=== PATIENT | male | born 1980 | race Caucasian/White ===

== ENCOUNTER 2019-10-05 10:57 | Inpatient (IN) | payer MEDICAID ==
[~2019-10-05] VITALS: Ht 185.4 cm; Wt 90.7 kg
[2019-10-05 11:30] VITALS: BP 135/76
--- NOTE | 2019-10-05 11:30 | NUR ---
DIRECT ADMIT FROM [facility] PT DIRECT ADMIT FROM [facility] ARRIVED ON THE FLOOR AT 1130AM. CAME VIA GURNEY BROUGHT IN BY 2 FURNACE ATTENDANT. PT IS VERY SLEEPY BUT HE IS AROUSABLE. AOX3. HE ADMITS TO USING METH OCCASIONALLY, HE STATES THAT HIS LAST USE WAS 6 DAYS AGO. PT HOOKED UP ON CARDIAC TELE MONITOR SHOWING SINUS RHYTHM WITH HR OF 80S. BODY CHECK DONE. CELLULITIS NOTED ON L FOOT WITH REDNESS AND TENDERNESS NOTED WITH EDEMA. PICTURES TAKEN AND PLACED IN CHART. IV ACCESS NOTED ON L AC G20. PT CONTINENT OF BOWEL AND BLADDER. ABLE TO AMBULATE BUT PT IS LIMPING D/T LEFT FOOT CELLULITIS. ORIENTED PT TO ROOM, UNIT. SAFETY PRECAUTIONS IN PLACE. BED LOCKED AND IN LOW POSITION. BED ALARM ON. SIDE RAILS UP. WILL CONT TO MONITOR.
--- NOTE | 2019-10-05 12:00 | NUR ---
MD NOTIFICATION DR. RAMOS NOTIFIED OF PTS ADMISSION. PER MD HE WILL PUT ADMITTING ORDERS.
--- NOTE | 2019-10-05 12:15 | NUR ---
[facility] SWAB OBTAINED MRSA SWAB OBTAINED FOR MRSA SCREENING. SPECIMEN COLLECTED. NOTIFIED LAB.
[2019-10-05] MEDS ORDERED: HYDROCODONE/APAP 5/325MG 1 EACH TABLET PO PRN (12:30)
[2019-10-05] MEDS ORDERED: MAGNESIUM HYDROXIDE 30 ML UDC PO PRN (12:30)
[2019-10-05] MEDS ORDERED: APIXABAN 5 MG TABLET PO SCH (12:30)
[2019-10-05] MEDS ORDERED: Z GUARD REMEDY 2 OZ OINT TP PRN (12:30)
[2019-10-05] MEDS ORDERED: ONDANSETRON HCL/PF 4 MG/2 ML VIAL IVP PRN (12:30)
[2019-10-05] MEDS ORDERED: ZOLPIDEM TARTRATE 5 MG TABLET PO PRN (12:30)
[2019-10-05] MEDS ORDERED: MAG HYDROX/AL HYDROX/SIMETH 30 ML UDC PO PRN (12:30)
[2019-10-05] MEDS ORDERED: ACETAMINOPHEN 325 MG TABLET PO PRN (12:30)
[2019-10-05] MEDS ORDERED: MORPHINE SULFATE INJ 2 MG/ML DISP.SYRIN IV PRN (12:30)
[2019-10-05] MEDS: IV NS 0.9% 1,000 ML IV PRN (12:57)
--- NOTE | 2019-10-05 14:00 | NUR ---
F/U WITH MD FOLLOWED UP WITH MD FOR ATB SINCE PT HAS DX OF CELLULITIS. PER DR. RAMOS, HE WILL ORDER ATB FOR PT.
[2019-10-05] MEDS ORDERED: FEE PK DOSING 1 MIN EA MC ONE (14:37)
[2019-10-05] MEDS: CEFTRIAXONE 1 G in IV D5W 50 ML IV SCH (15:48)
--- NOTE | 2019-10-05 16:00 | NUR ---
NO HOME MEDS PER PT HE DOESNT TAKE ANY MEDS AT HOME.
[2019-10-05] MEDS: RIVAROXABAN 15 MG TABLET PO SCH (16:25)
[2019-10-05 16:33] VITALS: BP 123/74
[2019-10-05] MEDS: VANCOMYCIN 1.25 GM in IV D5W 250 ML IV SCH (17:41)
--- NOTE | 2019-10-05 18:24 | NUR ---
DIRECTOR OF DIETARY CLOSING NOTES PT IN BED. ASLEEP. BUT AROUSABLE. HE IS AOX3. NO CARDIAC OR RESPIRATORY DISTRESS NOTED. SATURATING WELL ON ROOM AIR. CONTINENT OF B/B. IV ACCESS NOTED ON L AC G20. NS RUNNING AT 100ML/HR. IV ATB ROCEPHIN AND VANCOMYCIN STARTED TODAY. NO COMPLAINS OF PAIN OR DISCOMFORT AT THIS TIME. PT ATE 100% OF HIS DINNER. SAFETY PRECAUTIONS IN PLACE. BED LOCKED AND IN LOW POSITION. SIDE RAILS UP X2. BED ALARM ON. WILL ENDORSE TO NEXT SHIFT.
--- NOTE | 2019-10-05 19:35 | NUR ---
FIELD TRAINER OPENING NOTES PATIENT AWAKE IN BED. A/OX3, ABLE TO VERBALIZE NEEDS. ON RA. NO S/S OF ACUTE RESPIRATORY DISTRESS OR C/O PAIN AT THIS TIME. TELE MONITOR READING NSR, HEART RATE 80. IV PRESENT ON LEFT AC, SIZE 20, INTACT & PATENT WITH NS RUNNING AT 100 ML/HR. SAFETY MEASURES IN PLACE AND PATIENT'S NEEDS MET. BED LOCKED, SIDE RAILS X2, CALL LIGHT WITHIN REACH. WILL CONTINUE TO MONITOR.
[2019-10-05 20:00] VITALS: BP 109/59
[2019-10-06] VITALS: BP 119/51
[2019-10-06 01:14] VITALS: BP 119/51
[2019-10-06] MEDS: VANCOMYCIN 1.25 GM in IV D5W 250 ML IV SCH ×3 (01:29→17:50)
--- NOTE | 2019-10-06 07:30 | NUR ---
Tele/RN Opening Note Received patient AO x 2-3, sleeping, does no appears pain or any discomfort. Respiratory even and unlabored in room air. Skin is warm to touch, kept clean/dry, intact IV site at AC 20g. Kept low position of the bed with locked wheel and elevated head of bed foe secure airway. Call light within reach, will continue to monitor.
[2019-10-06 07:33] LABS: BASOPHILS % (AUTO) 0.5 % (0.0-2.0); EOSINOPHILS % (AUTO) 2.2 % (0.0-6.0); HEMATOCRIT 38 % (39-51); HEMOGLOBIN 12.6 g/dL (13.5-17.5); LYMPHOCYTES # (AUTO) 1.7 /CMM (0.8-4.8); LYMPHOCYTES % (AUTO) 20.2 % (20.0-44.0); MEAN CORPUSCULAR HGB CONC 33 g/dl (31.0-36.0); MEAN CORPUSCULAR VOLUME 84 fL (80-96); MONOCYTES # (AUTO) 0.9 /CMM (0.1-1.30); NEUTROPHILS # (AUTO) 5.7 /CMM (1.8-8.9); NEUTROPHILS % (AUTO) 67.1 % (43.0-81.0); PLATELET COUNT (AUTO) 348 /CMM (150-450); RED BLOOD CELL COUNT(AUTO) 4.54 MIL/uL (4.5-6.0); WHITE BLOOD COUNT (AUTO) 8.5 K/uL (4.3-11.0)
--- NOTE | 2019-10-06 07:41 | NUR ---
BUNKER WORKER CLOSING NOTES PATIENT SLEEPING IN BED, EASY TO AWAKEN. A/OX3. ON RA. NO S/S OF ACUTE RESPIRATORY DISTRESS OR C/O PAIN AT THIS TIME. TELE MONITOR READING NSR, HEART RATE 95. IV PRESENT ON LEFT AC, SIZE 20, INTACT & PATENT WITH NS RUNNING AT 100 ML/HR. SAFETY MEASURES IN PLACE AND PATIENT'S NEEDS MET. BED LOCKED, SIDE RAILS X2, CALL LIGHT WITHIN REACH. WILL ENDORSE TO DAY SHIFT NURSE PLAN OF CARE.
[2019-10-06 07:49] LABS: ALBUMIN 2.8 g/dL (3.4-5.0); BILIRUBIN,TOTAL 0.4 mg/dL (0.2-1.0); CALCIUM, SERUM 8.2 mg/dL (8.5-10.1); CREATININE 0.8 mg/dL (0.6-1.3); MAGNESIUM 2.1 mg/dL (1.8-2.4); PHOSPHORUS 2.4 mg/dL (2.5-4.9); POTASSIUM 3.5 mmol/L (3.5-5.1); TOTAL PROTEIN, SERUM 6.6 g/dL (6.4-8.2)
[2019-10-06 08:00] VITALS: BP 121/70
[2019-10-06] MEDS: RIVAROXABAN 15 MG TABLET PO SCH ×2 (08:54→17:49)
[2019-10-06] MEDS: IV NS 0.9% 1,000 ML IV PRN (09:00)
--- NOTE | 2019-10-06 09:04 | NUR ---
WOUND CARE CONSULT: PT PRESENTS WITH SWELLING AND REDNESS TO LEFT LOWER LEG AND FOOT, PRESENT ON ADMISSION. DISCUSSED LEG ELEVATION WITH NURSING STAFF AND PT. WILL SEE PRN. CURRENT INEZ SCORE IS 22. Addendum: 10/06/19 at 0905 by SERGIO ANDERSON WNDNU Amended: Links added.
[2019-10-06] MEDS ORDERED: K PHOS NEUTRAL 250 MG TABLET PO ONE ×2 (10:30→11:00)
--- NOTE | 2019-10-06 10:39 | NUR ---
Patient has order phos-nak po 500mg 2tabs, but Omnicell available only powder 1.5gm, spoke with pharmacy, who will fix computer system.
[2019-10-06 12:00] VITALS: BP 126/77
[2019-10-06] MEDS: CEFTRIAXONE 1 G in IV D5W 50 ML IV SCH (15:26)
[2019-10-06 16:00] VITALS: BP 122/63
--- NOTE | 2019-10-06 18:30 | NUR ---
MS/RN Closing note Patient in bed comfortably, does no c/o pain or any discomfort. Respiratory even and unlabored with room air. Skin is warm touch, kept clean/dry, intact IV site, no s/s of adverse reaction observed from ATB IV therapy. Keep bed position with locked wheel and elevated head of bed for secure airway. Call light within reach, will endorse night supervisor.
[2019-10-06 20:00] VITALS: BP 117/69
--- NOTE | 2019-10-06 20:00 | NUR ---
MS/RN OPENING NOTES RECEIVED PATIENT IN BED, ABLE TO VERBALIZE NEEDS, REPORTED SOME PAIN OF 2/10 BUT IN LOWER FEET. CALM AND COOPERATIVE, ABLE TO TOLERATE. SKIN WARM TO TOUCH. ON IV HYDRATION. IV SITE PATENT. ON ROOM AIR BREATHING EVEN AND UNLABORED. RECEIVED ENDORSEMENT FROM AM RN FOR CHANDLER. USES URINAL AND OFF LOAD EXTREMITIES. BED LOCKED, CALL LIGHTS WITHIN REACH,
[2019-10-07] MEDS: VANCOMYCIN 1.25 GM in IV D5W 250 ML IV SCH ×3 (01:04→17:10)
[2019-10-07] MEDS: IV NS 0.9% 1,000 ML IV PRN (06:27)
--- NOTE | 2019-10-07 06:36 | NUR ---
313-1 MS/RN NOTES PATIENT ABLE TO SLEEP DURING THE NIGHT, PAIN TOLERATED, LEFT LEG WITH REDNESS/CELLULITIS AND OFF LOADED,ATTENDED TO ALL NEEDS,BREATHING EVEN AND UNLABORED, MONITORED FOR CHANGES, KEPT COMFORTABLE. IV SITE ON LEFT WRIST PATENT. IV ANTIBIOTIC ADMINISTERED. TOLERATED WELL. WILL ENDORSE TO AM RN FOR CHANDLER.
[2019-10-07 06:50] LABS: BASOPHILS # (AUTO) 0.1 /CMM (0.0-0.2); BASOPHILS % (AUTO) 0.8 % (0.0-2.0); EOSINOPHILS % (AUTO) 3.8 % (0.0-6.0); HEMATOCRIT 37 % (39-51); HEMOGLOBIN 12.5 g/dL (13.5-17.5); LYMPHOCYTES # (AUTO) 1.6 /CMM (0.8-4.8); LYMPHOCYTES % (AUTO) 24.8 % (20.0-44.0); MEAN CORPUSCULAR HGB CONC 34 g/dl (31.0-36.0); MEAN CORPUSCULAR VOLUME 84 fL (80-96); MONOCYTES # (AUTO) 0.6 /CMM (0.1-1.30); MONOCYTES % (AUTO) 9.9 % (2.0-12.0); NEUTROPHILS % (AUTO) 60.7 % (43.0-81.0); PLATELET COUNT (AUTO) 385 /CMM (150-450); RED BLOOD CELL COUNT(AUTO) 4.42 MIL/uL (4.5-6.0); WHITE BLOOD COUNT (AUTO) 6.5 K/uL (4.3-11.0)
[2019-10-07 07:01] LABS: CREATININE 0.8 mg/dL (0.6-1.3); PHOSPHORUS 3.4 mg/dL (2.5-4.9); POTASSIUM 3.5 mmol/L (3.5-5.1)
--- NOTE | 2019-10-07 07:35 | NUR ---
MS/RN - Assessment Patient is A/O X 4, afebrile, stable on room air, no complaints overnight, denies pain, IVF NS at 75 ml/hr infusing well on the left wrist with no signs of infiltration. Left leg with redness and swelling, continue to elevate. On Vancomycin IV for Cellulitis. Labs reviewed, no critical results seen. Fall precautions maintained. Will continue with current medical management.
[2019-10-07] MEDS: RIVAROXABAN 15 MG TABLET PO SCH ×2 (08:04→16:51)
[2019-10-07 16:00] VITALS: BP 123/71
--- NOTE | 2019-10-07 18:53 | NUR ---
MS/RN - End of shift summary No significant change in condition noted, remain afebrile, denies pain, not in any form of distress. Plan of care discussed with patient and in agreement. Will endorse to night RN accordingly.
--- NOTE | 2019-10-07 19:20 | NUR ---
MS RN OPENING NOTES RECEIVED PATIENT FROM MORNING SHIFT, ALERT AND ORIENTED X 3. VERBALLY RESPONSIVE AND ABLE TO FOLLOW DIRECTIONS. BREATHING REGULAR AND UNLABORED ON ROOM AIR. LEFT WRIST G20 IV LINE INTACT AND PATENT INFUSING WELL WITH NO BLEEDING OR S/S OF INFILTRATION NOTED. DENIES SUICIDAL IDEATION. NO COMPLAINTS OF PAIN/DISCOMFORT REPORTED AT THIS TIME. BED LOW AND LOCKED ON SEMI FOWLERS POSITION. CALL LIGHT IN REACH. WILL CONTINUE TO MONITOR.
[2019-10-07 20:00] VITALS: BP 124/77
[2019-10-08] MEDS: VANCOMYCIN 1.25 GM in IV D5W 250 ML IV SCH ×3 (01:53→18:00)
[2019-10-08] MEDS: IV NS 0.9% 1,000 ML IV PRN (05:00)
--- NOTE | 2019-10-08 06:20 | NUR ---
MS RN CLOSING NOTES PATIENT IN BED, ALERT AND ORIENTED X 3. AFEBRILE WITH NO S/S OF DISTRESS OBSERVED. LEFT WRIST G20 IV LINE PATENT AND INFUSING WELL. NO COMPLAINTS OF PAIN/DISCOMFORT REPORTED THE WHOLE SHIFT. BED LOW AND LOCKED ON SEMI FOWLERS POSITION. CALL LIGHT IN REACH. WILL ENDORSE TO MORNING SHIFT FOR CHANDLER.
[2019-10-08 08:00] VITALS: BP 128/63
[2019-10-08 08:01] LABS: CALCIUM, SERUM 8.7 mg/dL (8.5-10.1); CREATININE 0.9 mg/dL (0.6-1.3); POTASSIUM 3.7 mmol/L (3.5-5.1)
--- NOTE | 2019-10-08 08:01 | NUR ---
MS/RN - Assessment Patient is A/O X 4, afebrile, stable on room air, no complaints overnight, denies pain, IVF NS at 75 ml/hr infusing well on the left wrist with no signs of infiltration. LLE swelling has improved, continue to elevate. Labs results pending. Plan for discharge home today with extended period of antibiotics and Xarelto.
[2019-10-08] MEDS: RIVAROXABAN 15 MG TABLET PO SCH ×2 (08:07→16:51)
[2019-10-08 16:00] VITALS: BP 104/72
[2019-10-08] MEDS ORDERED: DOXY100C PO (18:10)
[2019-10-08] MEDS ORDERED: SULF1TAB48 PO (18:10)
[2019-10-08] MEDS ORDERED: RIVA10TA PO (18:10)
[2019-10-08] MEDS ORDERED: RIVA15TA PO (18:10)
--- NOTE | 2019-10-08 18:46 | NUR ---
MS/RN - Discharge Patient is alert and oriented X 4, discharged home in stable condition, remain afebrile, denies pain, not in any form of distress, ambulatory with steady gait. Reviewed discharge instructions with patient and he verbalized full understanding of all teachings including medications and follow-up care with PCP as scheduled. E-prescription sent to pt's preferred pharmacy. Patient advised to seek immediate medical attention for worsening symptoms, chest pain, shortness of breath, palpitations, abdominal pain/distention, intractable nausea and vomiting, diarrhea, hematochezia, melena, weakness, loss of consciousness, neurological deficit, or any other emergent concerns. All belongings with patient and he deny any missing items. Patient refused photos to be taken of skin. Saline lock removed on the left wrist with catheter tip intact, no redness, no swelling noted at the site. Discharge paperwork signed and copies were given per protocol.
== END 2019-10-08 18:55 | disposition home or self-care (01) | DRG 383 ==
LOC: TELE 10:57 → MED 10-06 11:15
PROVIDERS: ADMIT Internal Medicine; ATTEND Nurse Practitioner Acute Care
DX: L03.116 Cellulitis of left lower limb (principal); I82.402 Acute embolism and thrombosis of unspecified deep veins of left lower extremity; E83.51 Hypocalcemia; E83.39 Other disorders of phosphorus metabolism; F15.10 Other stimulant abuse, uncomplicated
CPT/HCPCS: 36415; 73630-TC; 80048-TC; 80053-TC; 80061-TC; 80202-TC; 83735-TC; 84100-TC; 84484-TC; 85025-TC; 87040-TC; 87081-TC; G0378; J0696; J2270; J3370; J7030; J7060